=== PATIENT | female | born 1975 | race Caucasian/White ===

== ENCOUNTER 2017-08-14 13:04 | Emergency (ER) | payer SELFPAY, MEDICAID | END 2017-08-14 14:04 | disposition home or self-care (01) | LOC: FTE 13:04 | DX: M10.062 Idiopathic gout, left knee (principal) | CPT/HCPCS: 99284 ==

== ENCOUNTER 2018-02-23 11:52 | Emergency (ER) | payer MEDICAID ==
[2018-02-23 12:40] LABS: ADD MAN DIFF? NO
[2018-02-23 12:47] LABS: WHITE BLOOD COUNT 5.7 10^3/ul (4.8-10.8)
[2018-02-23 12:47] LABS: BASOPHILS % 0.3 % (0.0-2.0); EOSINOPHILS # 0.2 10^3/ul (0.0-0.5); EOSINOPHILS % 2.6 % (0.0-7.0); HEMATOCRIT 38.2 % (37.0-47.0); HEMOGLOBIN 12.9 g/dl (12.0-16.0); LYMPHOCYTES # 1.6 10^3/ul (0.8-2.9); LYMPHOCYTES % 27.7 % (15.0-51.0); MEAN CORPUSCULAR HEMOGLOBIN 32.6 pg (29.0-33.0); MEAN CORPUSCULAR HGB CONC 33.8 g/dl (32.0-37.0); MEAN CORPUSCULAR VOLUME 96.5 fl (82.0-101.0); MEAN PLATELET VOLUME 9.9 fl (7.4-10.4); MONOCYTE # 0.5 10^3/ul (0.3-0.9); MONOCYTES % 9.4 % (0.0-11.0); NEUTROPHIL # 3.4 10^3/ul (1.6-7.5); NEUTROPHILS % 59.7 % (39.0-77.0); PLATELET COUNT 202 10^3/UL (140-415); RED BLOOD COUNT 3.96 10^6/ul (4.20-5.40); RED CELL DISTRIBUTION WIDTH 12.1 % (11.5-14.5)
[2018-02-23 13:16] LABS: ALANINE AMINOTRANSFERASE 108 IU/L (13-69); ALBUMIN 3.5 g/dl (3.3-4.9); ALBUMIN/GLOBULIN RATIO 1.12; ALKALINE PHOSPHATASE 43 IU/L (42-121); ANION GAP 9 (5-13); ASPARTATE AMINO TRANSFERASE 81 IU/L (15-46); BILIRUBIN,INDIRECT 0.5 mg/dl (0-1.1); BILIRUBIN,TOTAL 0.5 mg/dl (0.2-1.3); BLOOD UREA NITROGEN 9 mg/dl (7-20); CALCIUM 9.2 mg/dl (8.4-10.2); CARBON DIOXIDE 25 mmol/L (21-31); CHLORIDE 106 mmol/L (97-110); CREATININE 0.77 mg/dl (0.44-1.00); Estimated GFR > 60 mL/min (>60); GLUCOSE 122 mg/dl (70-220); LIPASE 274 U/L (23-300); POTASSIUM 3.7 mmol/L (3.5-5.1); SODIUM 140 mmol/L (135-144); TOTAL PROTEIN 6.6 g/dl (6.1-8.1)
[2018-02-23 13:32] LABS: ADD UMIC YES; UR ASCORBIC ACID 40 mg/dL (NEGATIVE); UR BACTERIA FEW /HPF (NONE SEEN); UR BILIRUBIN (Dip) NEGATIVE (NEGATIVE); UR BLOOD (Dip) 3+ mg/dL (NEGATIVE); UR CLARITY SLIGHTLY CLOUDY (CLEAR); UR COLOR YELLOW (YELLOW); UR GLUCOSE (Dip) NEGATIVE (NEGATIVE); UR KETONES (Dip) NEGATIVE (NEGATIVE); UR LEUKOCYTE ESTERASE (Dip) TRACE Leu/ul (NEGATIVE); UR MUCUS FEW /HPF (NONE SEEN); UR NITRITE (Dip) NEGATIVE (NEGATIVE); UR RBC > 182 /HPF (0-5); UR SPECIFIC GRAVITY (Dip) 1.026 (1.003-1.030); UR SQUAMOUS EPITHELIAL CELL FEW /HPF (FEW); UR TOTAL PROTEIN (Dip) 1+ mg/dl (NEGATIVE); UR UROBILINOGEN (Dip) NEGATIVE (NEGATIVE); UR WBC 67 /HPF (0-5)
[2018-02-23 13:44] LABS: ADD MAN DIFF? NO
[2018-02-23 13:50] LABS: WHITE BLOOD COUNT 6.6 10^3/ul (4.8-10.8)
[2018-02-23 13:50] LABS: BASOPHILS % 0.3 % (0.0-2.0); EOSINOPHILS # 0.2 10^3/ul (0.0-0.5); EOSINOPHILS % 2.7 % (0.0-7.0); HEMATOCRIT 38.4 % (37.0-47.0); LYMPHOCYTES # 1.8 10^3/ul (0.8-2.9); LYMPHOCYTES % 27.9 % (15.0-51.0); MEAN CORPUSCULAR HEMOGLOBIN 32.8 pg (29.0-33.0); MEAN CORPUSCULAR HGB CONC 33.9 g/dl (32.0-37.0); MEAN PLATELET VOLUME 9.6 fl (7.4-10.4); MONOCYTE # 0.7 10^3/ul (0.3-0.9); NEUTROPHIL # 3.8 10^3/ul (1.6-7.5); NEUTROPHILS % 57.8 % (39.0-77.0); PLATELET COUNT 212 10^3/UL (140-415); RED BLOOD COUNT 3.96 10^6/ul (4.20-5.40); RED CELL DISTRIBUTION WIDTH 12.1 % (11.5-14.5)
[2018-02-23] MEDS: IBUPROFEN 800 MG TAB PO (14:52)
[2018-02-23] MEDS ORDERED: LIDOCAINE 4% CR (20:46)
== END 2018-02-23 15:04 | disposition home or self-care (01) ==
LOC: FTE 11:52
DX: O03.9 Complete or unspecified spontaneous abortion without complication (principal)
CPT/HCPCS: 36415; 76801; 76817; 80053; 81001; 81025; 83690; 84702; 85025; 86900; 86901; 99284-25